=== PATIENT | female | born 1985 | race Two or more races ===

== ENCOUNTER 2021-01-08 20:40 | Emergency (ER) | payer MEDICAID ==
[~2021-01-08] VITALS: Ht 157.5 cm; Wt 77.3 kg
[2021-01-08] MEDS ORDERED: LANS30CA56 PO (20:59)
[2021-01-08] MEDS ORDERED: ENAL5TAB17 PO (20:59)
[2021-01-08] MEDS ORDERED: ENAL-90 PO (20:59)
[2021-01-08] MEDS ORDERED: LEVO125 PO (20:59)
[2021-01-08] MEDS ORDERED: QUET200T PO (20:59)
[2021-01-08] MEDS ORDERED: ALBUTEROL SULFATE HFA 90 MCG/PUFF 8 GM INHALER IH ONE (21:15)
[2021-01-08 21:20] VITALS: BP 126/79
== END 2021-01-08 21:50 | disposition home or self-care (01) ==
LOC: EMS 20:40
DX: J45.909 Unspecified asthma, uncomplicated (principal); Z76.0 Encounter for issue of repeat prescription
CPT/HCPCS: 90471; 94640; 99283; J3535

== ENCOUNTER 2021-01-30 21:10 | Emergency (ER) | payer MEDICAID ==
[~2021-01-30] VITALS: Ht 157.5 cm; Wt 90.5 kg
[~2021-01-30 21:10] MED LIST: ENAL-90 PO; ENAL5TAB17 PO; LANS30CA56 PO; LEVO125 PO; QUET200T PO
[2021-01-30 21:13] VITALS: BP 129/68
== END 2021-01-31 02:59 | disposition home or self-care (01) ==
LOC: EMS 21:10
DX: M54.6 Pain in thoracic spine (principal); F41.9 Anxiety disorder, unspecified; I10 Essential (primary) hypertension; F20.9 Schizophrenia, unspecified; Z76.0 Encounter for issue of repeat prescription
CPT/HCPCS: 72072; 84703; 99284; Z7502

== ENCOUNTER 2021-03-23 08:41 | Inpatient (IN) | payer MEDICAID, OTHER ==
[~2021-03-23] VITALS: Ht 160 cm; Wt 96.3 kg
[2021-03-23 09:27] LABS: BASOPHILS % (AUTO) 0.5 % (0.0-2.0); HEMOGLOBIN 11.9 g/dL (12.0-16.0); LYMPHOCYTES # (AUTO) 2.1 K/uL (1.0-4.8); LYMPHOCYTES % (AUTO) 30.5 % (22.0-44.0); MEAN CORPUSCULAR HEMOGLOBIN 27.3 pg (26.0-34.0); MEAN CORPUSCULAR VOLUME 83 fL (80-100); MONOCYTES # (AUTO) 0.6 K/uL (0.1-1.0); MONOCYTES % (AUTO) 7.9 % (2.0-9.0); NEUTROPHILS # (AUTO) 4.1 K/uL (1.8-7.7); NEUTROPHILS % (AUTO) 58.1 % (40.0-70.0); PLATELET COUNT (AUTO) 349 K/uL (150-450); RED BLOOD CELL COUNT(AUTO) 4.35 MIL/uL (4.00-5.20); RED CELL DISTRIBUTION WIDTH 16.4 % (11.5-14.5)
[2021-03-23 09:35] LABS: ANION GAP 5 mmol/L (8-16); CALCIUM, TOTAL 9.1 mg/dL (8.8-10.5); CARBON DIOXIDE 28 mmol/L (22-29); CHLORIDE 101 mmol/L (98-107); CREATININE 0.66 mg/dL (0.60-1.30); GLOMERULAR FILTR. RATE CALC > 60 mL/min (>60); GLUCOSE,RANDOM 101 mg/dL (70-110); POTASSIUM 4.2 mmol/L (3.5-5.1); SODIUM SERUM 134 mmol/L (136-145); UREA NITROGEN, BLOOD 25 mg/dL (7-18)
[2021-03-23 09:54] LABS: ALANINE AMINOTRANSFERASE 44 U/L (12-78); ALBUMIN 3.6 g/dL (3.4-5.0); ALKALINE PHOSPHATASE 51 U/L (46-116); ASPARTATE AMINOTRANSFERASE 19 U/L (15-37); BILIRUBIN,TOTAL 0.3 mg/dL (0.1-1.0); HCG,QUANTITATIVE < 1 mIU/mL (0-6); TOTAL PROTEIN, SERUM 7.6 g/dL (6.4-8.2)
[2021-03-23 11:58] LABS: AMPHET/METH SCREEN,URINE NEGATIVE (NEGATIVE); BARBITURATE SCREEN, URINE NEGATIVE (NEGATIVE); BENZODIAZEPINES SCREEN,URINE NEGATIVE (NEGATIVE); CANNABINOID SCREEN,URINE NEGATIVE (NEGATIVE); COCAINE SCREEN,URINE NEGATIVE (NEGATIVE); METHADONE SCREEN, URINE NEGATIVE (NEGATIVE); OPIATE SCREEN,URINE NEGATIVE (NEGATIVE); PHENCYCLIDINE SCREEN,URINE NEGATIVE (NEGATIVE)
[2021-03-23 12:49] LABS: COVID AG,FIA SOURCE NASOPHARYNGEAL
[2021-03-23] MEDS ORDERED: SERT-162 PO (13:17)
[2021-03-23] MEDS ORDERED: TRAZ150 PO (13:17)
[2021-03-23] MEDS ORDERED: QUEtiapine FUMARATE 100 MG TABLET PO ONE ×2 (15:30→18:00)
[2021-03-23] MEDS: ACETAMINOPHEN 325 MG TABLET PO PRN ×2 (18:18→20:47)
[2021-03-23] MEDS: LORazepam 2 MG TABLET PO PRN (20:47)
[2021-03-23 22:07] VITALS: BP 139/93
[2021-03-23] MEDS ORDERED: PERMETHRIN 1% 60 ML LOTION TP ONE (22:15)
[2021-03-24 01:08] VITALS: BP 131/97
[2021-03-24] MEDS: ZOLPIDEM TARTRATE 10 MG TABLET PO PRN ×2 (01:19→22:14)
[2021-03-24] MEDS ORDERED: PNEUMOCOCCAL VACCINE POLYVALENT 0.5 ML VIAL [PPSV23] IM. ONE (02:00)
[2021-03-24] MEDS ORDERED: LANSOPRAZOLE 30 MG CAPSULE PO SCH (06:30)
[2021-03-24] MEDS ORDERED: LEVOTHYROXINE SODIUM 200 MCG TABLET PO SCH (06:30)
[2021-03-24 07:15] LABS: CHOL/HDL RATIO 5.7 (3.9-5.7)
[2021-03-24 08:54] VITALS: BP 118/73
[2021-03-24] MEDS ORDERED: ENALAPRIL MALEATE 10 MG TABLET PO SCH (09:00)
[2021-03-24] MEDS ORDERED: CloNIDine HCL 0.1 MG TABLET PO PRN (10:15)
[2021-03-24] MEDS ORDERED: GuaiFENesin/D-METHORPHAN [SUGAR-FREE] 200-20MG/10 ML SYRUP UDCUP PO PRN (10:15)
[2021-03-24] MEDS ORDERED: PETROLATUM,WHITE 28 GM JELLY TP PRN (10:15)
[2021-03-24] MEDS ORDERED: MAGNESIUM HYDROXIDE SUSPENSION 30 ML UDCUP PO PRN (10:15)
[2021-03-24] MEDS ORDERED: NICOTINE 14 MG/24 HOUR PATCH TD PRN (10:15)
[2021-03-24] MEDS ORDERED: MAG HYDROX/AL HYDROX/SIMETH ES 30 ML SUSPENSION UDCUP PO PRN (10:15)
[2021-03-24] MEDS ORDERED: DOCUSATE SODIUM 100 MG CAPSULE PO PRN (10:15)
[2021-03-24] MEDS ORDERED: ALBUTEROL SULFATE HFA 90 MCG/PUFF 8 GM INHALER IH PRN (10:15)
[2021-03-24] MEDS ORDERED: ONDANSETRON HCL 4 MG TABLET PO PRN (10:15)
[2021-03-24] MEDS ORDERED: LOPERAMIDE HCL 2 MG CAPSULE PO PRN (10:15)
[2021-03-24] MEDS: LORazepam 2 MG TABLET PO PRN (12:30)
[2021-03-24] MEDS ORDERED: HALOPERIDOL DECANOATE 100 MG/ML VIAL IM ONE (15:15)
[2021-03-24 16:22] VITALS: BP 118/72
[2021-03-24] MEDS ORDERED: OLANZapine 5 MG TABLET PO SCH (17:00)
[2021-03-24] MEDS: QUEtiapine FUMARATE 200 MG TABLET PO SCH ×2 (17:17→21:10)
[2021-03-25 00:39] VITALS: BP 150/81
[2021-03-25] MEDS: IBUPROFEN 400 MG TABLET PO PRN ×2 (00:42→11:37)
[2021-03-25 01:16] VITALS: BP 125/91
[2021-03-25 04:05] VITALS: BP 117/63
[2021-03-25] MEDS: ACETAMINOPHEN 325 MG TABLET PO PRN (04:05)
[2021-03-25] MEDS: LANSOPRAZOLE 30 MG CAPSULE PO SCH (06:37)
[2021-03-25] MEDS: LEVOTHYROXINE SODIUM 125 MCG TABLET PO SCH (06:38)
[2021-03-25 08:29] VITALS: BP 118/69
[2021-03-25] MEDS: SERTRALINE HCL 100 MG TABLET PO SCH (08:51)
[2021-03-25] MEDS: ENALAPRIL MALEATE 20 MG TABLET PO SCH (08:51)
[2021-03-25] MEDS: QUEtiapine FUMARATE 200 MG TABLET PO SCH ×4 (08:51→20:08)
[2021-03-25] MEDS: HALOPERIDOL 5 MG TABLET PO PRN (13:40)
[2021-03-25 16:35] VITALS: BP 120/70
[2021-03-25] MEDS: ZOLPIDEM TARTRATE 10 MG TABLET PO PRN (20:25)
[2021-03-26] MEDS: QUEtiapine FUMARATE 25 MG TABLET PO PRN (00:41)
[2021-03-26 01:00] VITALS: BP 102/70
[2021-03-26] MEDS: LANSOPRAZOLE 30 MG CAPSULE PO SCH (06:21)
[2021-03-26] MEDS: LEVOTHYROXINE SODIUM 125 MCG TABLET PO SCH (06:22)
[2021-03-26] MEDS: SERTRALINE HCL 100 MG TABLET PO SCH (09:08)
[2021-03-26] MEDS: ENALAPRIL MALEATE 20 MG TABLET PO SCH (09:08)
[2021-03-26] MEDS: QUEtiapine FUMARATE 200 MG TABLET PO SCH ×4 (09:08→20:29)
[2021-03-26] MEDS: ACETAMINOPHEN 325 MG TABLET PO PRN (10:25)
[2021-03-26] MEDS: HALOPERIDOL 5 MG TABLET PO PRN (12:44)
[2021-03-26 13:11] VITALS: BP 117/83
[2021-03-26 16:25] VITALS: BP 120/62
[2021-03-26] MEDS ORDERED: DiphenhydrAMINE HCL 50 MG/ML VIAL ONE (17:54)
[2021-03-26] MEDS ORDERED: HALOPERIDOL LACTATE 5 MG/ML VIAL ONE (17:54)
[2021-03-26] MEDS ORDERED: LORazepam 2 MG/ML VIAL ONE (17:54)
[2021-03-26] MEDS ORDERED: HALOPERIDOL LACTATE 5 MG/ML VIAL IM ONE (18:00)
[2021-03-26] MEDS ORDERED: DiphenhydrAMINE HCL 50 MG/ML VIAL IM ONE (18:00)
[2021-03-26] MEDS ORDERED: LORazepam 2 MG/ML VIAL IM ONE (18:00)
[2021-03-26] MEDS: ZOLPIDEM TARTRATE 10 MG TABLET PO PRN (20:29)
[2021-03-27] MEDS: HALOPERIDOL 5 MG TABLET PO PRN ×3 (00:29→16:35)
[2021-03-27 01:56] VITALS: BP 116/69
[2021-03-27] MEDS: LANSOPRAZOLE 30 MG CAPSULE PO SCH (06:17)
[2021-03-27] MEDS: LEVOTHYROXINE SODIUM 125 MCG TABLET PO SCH (06:18)
[2021-03-27 09:35] VITALS: BP 122/74
[2021-03-27] MEDS: SERTRALINE HCL 100 MG TABLET PO SCH (09:44)
[2021-03-27] MEDS: ENALAPRIL MALEATE 20 MG TABLET PO SCH (09:44)
[2021-03-27] MEDS: QUEtiapine FUMARATE 200 MG TABLET PO SCH ×4 (09:44→20:17)
[2021-03-27] MEDS: IBUPROFEN 400 MG TABLET PO PRN (12:29)
[2021-03-27] MEDS: QUEtiapine FUMARATE 25 MG TABLET PO PRN ×2 (13:28→22:34)
[2021-03-27 16:27] VITALS: BP 138/80
[2021-03-27] MEDS: ZOLPIDEM TARTRATE 10 MG TABLET PO PRN (20:30)
[2021-03-28 00:15] VITALS: BP 142/80
[2021-03-28] MEDS: LEVOTHYROXINE SODIUM 125 MCG TABLET PO SCH (06:38)
[2021-03-28] MEDS: LANSOPRAZOLE 30 MG CAPSULE PO SCH (06:38)
[2021-03-28 08:39] VITALS: BP 131/71
[2021-03-28] MEDS: IBUPROFEN 400 MG TABLET PO PRN (08:40)
[2021-03-28] MEDS: HALOPERIDOL 5 MG TABLET PO PRN ×2 (08:40→12:41)
[2021-03-28] MEDS: QUEtiapine FUMARATE 200 MG TABLET PO SCH ×3 (09:15→16:13)
[2021-03-28] MEDS: ENALAPRIL MALEATE 20 MG TABLET PO SCH (09:16)
[2021-03-28] MEDS: SERTRALINE HCL 100 MG TABLET PO SCH (09:16)
[2021-03-28] MEDS: QUEtiapine FUMARATE 25 MG TABLET PO PRN ×2 (09:53→13:53)
[2021-03-28] MEDS: ACETAMINOPHEN 325 MG TABLET PO PRN (11:57)
[2021-03-28 16:26] VITALS: BP 112/74
[2021-04-07] MEDS ORDERED: HALOPERIDOL DECANOATE 100 MG/ML VIAL IM SCH (09:00)
== END 2021-03-28 17:00 | disposition home or self-care (01) | DRG 750 ==
LOC: EMS 08:53 → B2S 21:00
PROVIDERS: ADMIT Psychiatry & Neurology Child & Adolescent Psychiatry; ATTEND Psychiatry & Neurology Child & Adolescent Psychiatry
DX: F20.0 Paranoid schizophrenia (principal); E87.1 Hypo-osmolality and hyponatremia; Z91.19 Patient's noncompliance with other medical treatment and regimen; D64.9 Anemia, unspecified; Z20.822 Contact with and (suspected) exposure to COVID-19; F41.9 Anxiety disorder, unspecified; K21.9 Gastro-esophageal reflux disease without esophagitis; I10 Essential (primary) hypertension; J45.909 Unspecified asthma, uncomplicated; E03.9 Hypothyroidism, unspecified; Z59.0 Homelessness
CPT/HCPCS: 80053; 80061; 84702; 85025; 99285; G0480; J1200; J1630; J1631; J2060; J3535

== ENCOUNTER 2021-04-07 12:12 | Emergency (ER) | payer MEDICAID, OTHER ==
[~2021-04-07] VITALS: Ht 160 cm; Wt 96.3 kg
[~2021-04-07 12:12] MED LIST changes: -ENAL5TAB17 PO; +SERT-162 PO
[2021-04-07 12:35] VITALS: BP 130/80
[2021-04-07] MEDS ORDERED: KETOROLAC TROMETHAMINE 30 MG/ML VIAL IM ONE (13:15)
[2021-04-07] MEDS ORDERED: METHOCARBAMOL 500 MG TABLET PO ONE (13:15)
[2021-04-07] MEDS ORDERED: RISP3TAB44 PO (13:21)
[2021-04-07] MEDS ORDERED: HALO100V4 IM (13:21)
[2021-04-07] MEDS ORDERED: TRAZ300T2 PO (13:21)
[2021-04-07] MEDS ORDERED: LORA-1001 PO (13:21)
== END 2021-04-07 13:50 | disposition home or self-care (01) ==
LOC: EMS 12:12
DX: S29.012A Strain of muscle and tendon of back wall of thorax, initial encounter (principal); I10 Essential (primary) hypertension; E03.9 Hypothyroidism, unspecified; J45.909 Unspecified asthma, uncomplicated; F41.9 Anxiety disorder, unspecified; Z79.899 Other long term (current) drug therapy; X50.9XXA Other and unspecified overexertion or strenuous movements or postures, initial encounter; Y93.89 Activity, other specified; Y92.89 Other specified places as the place of occurrence of the external cause; Y99.8 Other external cause status
CPT/HCPCS: 96372; 99283; J1885

== ENCOUNTER 2021-09-04 14:50 | Emergency (ER) | payer OTHER ==
[~2021-09-04] VITALS: Ht 160 cm; Wt 78.2 kg
[~2021-09-04 14:50] MED LIST changes: +HALO100V4 IM; +LORA-1001 PO; -QUET200T PO; +RISP3TAB44 PO; +TRAZ300T2 PO
[2021-09-04 17:11] LABS: BASOPHILS % (AUTO) 0.2 % (0.0-2.0); EOSINOPHILS % (AUTO) 1.1 % (1.0-6.0); HEMATOCRIT 35.2 % (36-46); HEMOGLOBIN 12.1 g/dL (12.0-16.0); LYMPHOCYTES # (AUTO) 1.7 K/uL (1.0-4.8); LYMPHOCYTES % (AUTO) 22.4 % (22.0-44.0); MEAN CORPUSCULAR HEMOGLOBIN 28.8 pg (26.0-34.0); MEAN CORPUSCULAR HGB CONC 34.2 G/dL (31.0-37.0); MEAN CORPUSCULAR VOLUME 84 fL (80-100); MONOCYTES # (AUTO) 0.5 K/uL (0.1-1.0); MONOCYTES % (AUTO) 6.1 % (2.0-9.0); NEUTROPHILS # (AUTO) 5.4 K/uL (1.8-7.7); NEUTROPHILS % (AUTO) 70.2 % (40.0-70.0); PLATELET COUNT (AUTO) 303 K/uL (150-450); RED BLOOD CELL COUNT(AUTO) 4.19 MIL/uL (4.00-5.20)
[2021-09-04 17:21] LABS: ANION GAP 8 mmol/L (8-16); CALCIUM, TOTAL 8.8 mg/dL (8.8-10.5); CARBON DIOXIDE 29 mmol/L (22-29); CHLORIDE 103 mmol/L (98-107); CREATININE 0.75 mg/dL (0.60-1.30); GLOMERULAR FILTR. RATE CALC > 60 mL/min (>60); GLUCOSE,RANDOM 93 mg/dL (70-110); POTASSIUM 4.2 mmol/L (3.5-5.1); SODIUM SERUM 140 mmol/L (136-145); UREA NITROGEN, BLOOD 11 mg/dL (7-18)
[2021-09-04 17:39] LABS: ALANINE AMINOTRANSFERASE 78 U/L (12-78); ALBUMIN 3.4 g/dL (3.4-5.0); ALKALINE PHOSPHATASE 73 U/L (46-116); ASPARTATE AMINOTRANSFERASE 24 U/L (15-37); BILIRUBIN,TOTAL 0.3 mg/dL (0.1-1.0); HCG,QUANTITATIVE < 1 mIU/mL (0-6); LIPASE 79 U/L (73-393); TOTAL PROTEIN, SERUM 7.6 g/dL (6.4-8.2)
[2021-09-04 17:41] LABS: AMPHET/METH SCREEN,URINE NEGATIVE (NEGATIVE); BARBITURATE SCREEN, URINE NEGATIVE (NEGATIVE); BENZODIAZEPINES SCREEN,URINE NEGATIVE (NEGATIVE); CANNABINOID SCREEN,URINE NEGATIVE (NEGATIVE); COCAINE SCREEN,URINE NEGATIVE (NEGATIVE); METHADONE SCREEN, URINE NEGATIVE (NEGATIVE); OPIATE SCREEN,URINE NEGATIVE (NEGATIVE)
[2021-09-04 17:44] LABS: APPEARANCE,URINE CLEAR (CLEAR); GLUCOSE, URINE (UA) NEGATIVE (NEGATIVE); KETONES,URINE TRACE mg/dL (NEGATIVE); LEUKOCYTE ESTERASE ,URINE TRACE (NEGATIVE); NITRATE,URINE NEGATIVE (NEGATIVE); OCCULT BLOOD,URINE NEGATIVE (NEGATIVE); PROTEIN,URINE TRACE (NEGATIVE)
[2021-09-04 17:46] LABS: BILIRUBIN,URINE PRELIM. POSITIVE (NEGATIVE)
[2021-09-04 17:47] LABS: PHENCYCLIDINE SCREEN,URINE NEGATIVE (NEGATIVE)
[2021-09-04 18:30] VITALS: BP 133/78
[2021-09-04] MEDS ORDERED: PHEN-846 PO (19:00)
[2021-09-04] MEDS ORDERED: MACR100 PO (19:00)
[2021-09-04 19:20] LABS: RBC,URINE 0-2 /HPF (0-2)
[2021-09-04 19:21] LABS: BACTERIA,URINE Rare /HPF (None Seen)
== END 2021-09-04 19:10 | disposition home or self-care (01) ==
LOC: EMS 14:55
DX: N39.0 Urinary tract infection, site not specified (principal); F20.9 Schizophrenia, unspecified; I10 Essential (primary) hypertension; E03.9 Hypothyroidism, unspecified; J45.909 Unspecified asthma, uncomplicated; F41.9 Anxiety disorder, unspecified; Z79.899 Other long term (current) drug therapy
CPT/HCPCS: 36415; 80053; 80307; 81001; 83690; 84702; 85025; 99284; G0480

== ENCOUNTER 2021-09-21 19:40 | Inpatient (IN) | payer MEDICAID, OTHER ==
[~2021-09-21] VITALS: Ht 167.6 cm; Wt 109.8 kg
[~2021-09-21 19:40] MED LIST changes: +MACR100 PO; +PHEN-846 PO
[2021-09-21] MEDS ORDERED: LORazepam 2 MG/ML VIAL IM ONE (20:00)
[2021-09-21] MEDS ORDERED: DiphenhydrAMINE HCL 50 MG/ML VIAL IM ONE (20:00)
[2021-09-21] MEDS ORDERED: HALOPERIDOL LACTATE 5 MG/ML VIAL IM ONE (20:00)
[2021-09-21 20:11] LABS: BASOPHILS % (AUTO) 0.6 % (0.0-2.0); EOSINOPHILS % (AUTO) 2.7 % (1.0-6.0); HEMATOCRIT 36.5 % (36-46); HEMOGLOBIN 12.6 g/dL (12.0-16.0); LYMPHOCYTES # (AUTO) 2.7 K/uL (1.0-4.8); LYMPHOCYTES % (AUTO) 24.9 % (22.0-44.0); MEAN CORPUSCULAR HGB CONC 34.6 G/dL (31.0-37.0); MEAN CORPUSCULAR VOLUME 84 fL (80-100); MONOCYTES # (AUTO) 1.3 K/uL (0.1-1.0); NEUTROPHILS # (AUTO) 6.5 K/uL (1.8-7.7); NEUTROPHILS % (AUTO) 59.8 % (40.0-70.0); PLATELET COUNT (AUTO) 297 K/uL (150-450); RED BLOOD CELL COUNT(AUTO) 4.35 MIL/uL (4.00-5.20)
[2021-09-21 20:27] LABS: SALICYLATE < 2.8 mg/dL (2.8-20.0)
[2021-09-21 20:38] LABS: ANION GAP 13 mmol/L (8-16); CALCIUM, TOTAL 9.1 mg/dL (8.8-10.5); CARBON DIOXIDE 24 mmol/L (22-29); CHLORIDE 98 mmol/L (98-107); GLOMERULAR FILTR. RATE CALC > 60 mL/min (>60); GLUCOSE,RANDOM 112 mg/dL (70-110); POTASSIUM 3.7 mmol/L (3.5-5.1); SODIUM SERUM 135 mmol/L (136-145); UREA NITROGEN, BLOOD 10 mg/dL (7-18)
[2021-09-21 20:53] LABS: ALANINE AMINOTRANSFERASE 83 U/L (12-78); ALBUMIN 3.7 g/dL (3.4-5.0); ALKALINE PHOSPHATASE 87 U/L (46-116); ASPARTATE AMINOTRANSFERASE 28 U/L (15-37); BILIRUBIN,TOTAL 0.3 mg/dL (0.1-1.0); HCG,QUANTITATIVE < 1 mIU/mL (0-6); THYROID STIMULATING HORMONE 6.03 uIU/mL (0.36-3.74); TOTAL PROTEIN, SERUM 8.3 g/dL (6.4-8.2)
[2021-09-21 20:57] LABS: ACETAMINOPHEN < 2 mcg/mL (10-30)
[2021-09-21 20:59] LABS: COVID AG,FIA SOURCE NASAL SWAB
[2021-09-21] MEDS ORDERED: SODIUM CHLORIDE 0.9% 1,000 ML IV ONE (21:15)
[2021-09-21] MEDS ORDERED: PredniSONE 20 MG TABLET PO ONE (21:15)
[2021-09-21] MEDS ORDERED: SODIUM CHLORIDE 0.9% 100 ML ONE (21:27)
[2021-09-21] MEDS ORDERED: IOHEXOL 350 MG/ML 150 ML VIAL ONE (21:27)
[2021-09-21] MEDS ORDERED: HALOPERIDOL 5 MG TABLET PO PRN (23:00)
[2021-09-21] MEDS ORDERED: ZOLPIDEM TARTRATE 10 MG TABLET PO PRN (23:00)
[2021-09-21 23:24] LABS: APPEARANCE,URINE CLEAR (CLEAR); BILIRUBIN,URINE NEGATIVE (NEGATIVE); GLUCOSE, URINE (UA) NEGATIVE (NEGATIVE); KETONES,URINE NEGATIVE (NEGATIVE); LEUKOCYTE ESTERASE ,URINE NEGATIVE (NEGATIVE); NITRATE,URINE NEGATIVE (NEGATIVE); OCCULT BLOOD,URINE NEGATIVE (NEGATIVE); PH,URINE 7.5 (5.0-8.0); PROTEIN,URINE NEGATIVE (NEGATIVE); UROBILINOGEN,URINE 0.2 mg/dL (<=1.0)
[2021-09-21 23:45] LABS: AMPHET/METH SCREEN,URINE POSITIVE (NEGATIVE); BARBITURATE SCREEN, URINE NEGATIVE (NEGATIVE); BENZODIAZEPINES SCREEN,URINE NEGATIVE (NEGATIVE); CANNABINOID SCREEN,URINE NEGATIVE (NEGATIVE); COCAINE SCREEN,URINE NEGATIVE (NEGATIVE); METHADONE SCREEN, URINE NEGATIVE (NEGATIVE); OPIATE SCREEN,URINE NEGATIVE (NEGATIVE)
[2021-09-21 23:48] LABS: PHENCYCLIDINE SCREEN,URINE NEGATIVE (NEGATIVE)
[2021-09-21] MEDS ORDERED: FOLI0.8T2 PO (23:54)
[2021-09-21] MEDS ORDERED: ALLO100T2 PO (23:54)
[2021-09-21] MEDS ORDERED: INSU100V SQ (23:54)
[2021-09-21] MEDS ORDERED: CARV6 PO (23:54)
[2021-09-21] MEDS ORDERED: LIDO700A15 TP (23:54)
[2021-09-22 03:04] VITALS: BP 122/95
[2021-09-22] MEDS ORDERED: INFLUENZA VIRUS VACCINE QVS 2021-22 (6MO+)/PF 60 MCG/0.5 ML SYRINGE IM. ONE (03:30)
[2021-09-22] MEDS ORDERED: PNEUMOCOCCAL VACCINE POLYVALENT 0.5 ML VIAL [PPSV23] IM. ONE (03:30)
[2021-09-22] MEDS: LORazepam 2 MG TABLET PO PRN ×2 (04:08→10:06)
[2021-09-22] MEDS: BENZOCAINE/MENTHOL LOZENGE PO PRN (06:40)
[2021-09-22 08:05] VITALS: BP 112/79
[2021-09-22] MEDS: SERTRALINE HCL 100 MG TABLET PO SCH (12:02)
[2021-09-22] MEDS: RisperiDONE 3 MG TABLET PO SCH ×2 (12:02→17:46)
[2021-09-22] MEDS ORDERED: PETROLATUM,WHITE 28 GM JELLY TP PRN (13:15)
[2021-09-22] MEDS ORDERED: DOCUSATE SODIUM 100 MG CAPSULE PO PRN (13:15)
[2021-09-22] MEDS ORDERED: MAG HYDROX/AL HYDROX/SIMETH ES 30 ML SUSPENSION UDCUP PO PRN (13:15)
[2021-09-22] MEDS ORDERED: MAGNESIUM HYDROXIDE SUSPENSION 30 ML UDCUP PO PRN (13:15)
[2021-09-22] MEDS ORDERED: CloNIDine HCL 0.1 MG TABLET PO PRN (13:15)
[2021-09-22] MEDS ORDERED: ALBUTEROL SULFATE HFA 90 MCG/PUFF 8 GM INHALER IH PRN (13:15)
[2021-09-22] MEDS ORDERED: LOPERAMIDE HCL 2 MG CAPSULE PO PRN (13:15)
[2021-09-22] MEDS ORDERED: NICOTINE 14 MG/24 HOUR PATCH TD PRN (13:15)
[2021-09-22] MEDS ORDERED: ONDANSETRON HCL 4 MG TABLET PO PRN (13:15)
[2021-09-22 16:39] VITALS: BP 128/71
[2021-09-22] MEDS: CARVEDILOL 6.25 MG TABLET PO SCH (17:00)
[2021-09-22] MEDS: TraZODone HCL 100 MG TABLET PO SCH (20:11)
[2021-09-23 06:03] VITALS: BP 120/75
[2021-09-23] MEDS: LEVOTHYROXINE SODIUM 200 MCG TABLET PO SCH (06:45)
[2021-09-23] MEDS: SERTRALINE HCL 100 MG TABLET PO SCH (08:17)
[2021-09-23] MEDS: ENALAPRIL MALEATE 20 MG TABLET PO SCH (08:18)
[2021-09-23] MEDS: RisperiDONE 3 MG TABLET PO SCH ×2 (08:18→16:07)
[2021-09-23] MEDS: CARVEDILOL 6.25 MG TABLET PO SCH ×2 (08:18→16:07)
[2021-09-23 08:26] VITALS: BP 128/64
[2021-09-23] MEDS: BENZOCAINE/MENTHOL LOZENGE PO PRN (11:24)
[2021-09-23 16:24] VITALS: BP 110/83
[2021-09-23] MEDS: TraZODone HCL 100 MG TABLET PO SCH (19:51)
[2021-09-24 02:56] VITALS: BP 102/63
[2021-09-24] MEDS: LEVOTHYROXINE SODIUM 200 MCG TABLET PO SCH (06:27)
[2021-09-24] MEDS: ALLOPURINOL 100 MG TABLET PO SCH (08:04)
[2021-09-24] MEDS: SERTRALINE HCL 100 MG TABLET PO SCH (08:04)
[2021-09-24] MEDS: RisperiDONE 3 MG TABLET PO SCH ×2 (08:05→15:44)
[2021-09-24 08:13] VITALS: BP 108/76
[2021-09-24] MEDS: ENALAPRIL MALEATE 20 MG TABLET PO SCH (09:00)
[2021-09-24] MEDS: CARVEDILOL 6.25 MG TABLET PO SCH ×2 (09:00→15:45)
[2021-09-24] MEDS: GuaiFENesin/D-METHORPHAN [SUGAR-FREE] 200-20MG/10 ML SYRUP UDCUP PO PRN (15:55)
[2021-09-24 16:02] VITALS: BP 117/75
[2021-09-24] MEDS: IBUPROFEN 400 MG TABLET PO PRN (18:43)
[2021-09-24] MEDS: TraZODone HCL 100 MG TABLET PO SCH (20:11)
[2021-09-24] MEDS: ACETAMINOPHEN 325 MG TABLET PO PRN (20:17)
[2021-09-25 04:26] VITALS: BP 114/65
[2021-09-25] MEDS: LEVOTHYROXINE SODIUM 200 MCG TABLET PO SCH (06:41)
[2021-09-25 07:49] LABS: APPEARANCE,URINE CLEAR (CLEAR); BILIRUBIN,URINE NEGATIVE (NEGATIVE); GLUCOSE, URINE (UA) NEGATIVE (NEGATIVE); KETONES,URINE NEGATIVE (NEGATIVE); LEUKOCYTE ESTERASE ,URINE NEGATIVE (NEGATIVE); NITRATE,URINE NEGATIVE (NEGATIVE); OCCULT BLOOD,URINE NEGATIVE (NEGATIVE); PH,URINE 6.5 (5.0-8.0); PROTEIN,URINE NEGATIVE (NEGATIVE); UROBILINOGEN,URINE 0.2 mg/dL (<=1.0)
[2021-09-25 08:06] LABS: RBC,URINE None Seen /HPF (0-2); WBC,URINE None Seen /HPF (0-5)
[2021-09-25 08:07] VITALS: BP 110/71
[2021-09-25 08:07] LABS: BACTERIA,URINE None Seen /HPF (None Seen); SQUAMOUS EPITHELIAL CELL,UR Few /LPF (None Seen)
[2021-09-25] MEDS: CARVEDILOL 6.25 MG TABLET PO SCH ×2 (08:23→16:08)
[2021-09-25] MEDS: ENALAPRIL MALEATE 20 MG TABLET PO SCH (08:23)
[2021-09-25] MEDS: SERTRALINE HCL 100 MG TABLET PO SCH (08:23)
[2021-09-25] MEDS: RisperiDONE 3 MG TABLET PO SCH ×2 (08:23→16:08)
[2021-09-25 16:03] VITALS: BP 137/82
[2021-09-25 16:08] VITALS: BP 137/82
[2021-09-25] MEDS: GuaiFENesin/D-METHORPHAN [SUGAR-FREE] 200-20MG/10 ML SYRUP UDCUP PO PRN (16:08)
[2021-09-25] MEDS: ACETAMINOPHEN 325 MG TABLET PO PRN (16:08)
[2021-09-25] MEDS: TraZODone HCL 100 MG TABLET PO SCH (20:05)
[2021-09-26 00:10] VITALS: BP 124/86
[2021-09-26] MEDS: IBUPROFEN 400 MG TABLET PO PRN ×2 (00:11→17:11)
[2021-09-26 01:53] VITALS: BP 120/74
[2021-09-26] MEDS: LEVOTHYROXINE SODIUM 200 MCG TABLET PO SCH (06:57)
[2021-09-26 08:08] VITALS: BP 118/72
[2021-09-26] MEDS: RisperiDONE 3 MG TABLET PO SCH ×2 (08:14→16:02)
[2021-09-26] MEDS: CARVEDILOL 6.25 MG TABLET PO SCH ×2 (08:14→16:02)
[2021-09-26] MEDS: ALLOPURINOL 100 MG TABLET PO SCH (08:14)
[2021-09-26] MEDS: SERTRALINE HCL 100 MG TABLET PO SCH (08:14)
[2021-09-26] MEDS: LORazepam 2 MG TABLET PO PRN (08:14)
[2021-09-26] MEDS: ENALAPRIL MALEATE 20 MG TABLET PO SCH (08:14)
[2021-09-26 16:07] VITALS: BP 99/65
[2021-09-26 17:11] VITALS: BP 108/72
[2021-09-26 18:10] VITALS: BP 125/77
[2021-09-26] MEDS: TraZODone HCL 100 MG TABLET PO SCH (20:02)
[2021-09-26] MEDS: ACETAMINOPHEN 325 MG TABLET PO PRN (22:16)
[2021-09-27 04:17] VITALS: BP 110/67
[2021-09-27] MEDS: LEVOTHYROXINE SODIUM 200 MCG TABLET PO SCH (05:40)
[2021-09-27 08:41] VITALS: BP 130/81
[2021-09-27] MEDS: SERTRALINE HCL 100 MG TABLET PO SCH (08:56)
[2021-09-27] MEDS: RisperiDONE 3 MG TABLET PO SCH ×2 (08:56→16:03)
[2021-09-27] MEDS: CARVEDILOL 6.25 MG TABLET PO SCH ×2 (08:56→16:03)
[2021-09-27] MEDS: ENALAPRIL MALEATE 20 MG TABLET PO SCH (08:57)
[2021-09-27] MEDS: ACETAMINOPHEN 325 MG TABLET PO PRN ×2 (10:07→20:08)
[2021-09-27] MEDS: GuaiFENesin/D-METHORPHAN [SUGAR-FREE] 200-20MG/10 ML SYRUP UDCUP PO PRN (10:08)
[2021-09-27] MEDS: LORazepam 2 MG TABLET PO PRN (13:14)
[2021-09-27] MEDS: IBUPROFEN 400 MG TABLET PO PRN (13:32)
[2021-09-27 16:08] VITALS: BP 141/76
[2021-09-27] MEDS: TraZODone HCL 100 MG TABLET PO SCH (20:08)
[2021-09-28 03:12] VITALS: BP 126/70
[2021-09-28] MEDS: LEVOTHYROXINE SODIUM 200 MCG TABLET PO SCH (07:05)
[2021-09-28 08:24] VITALS: BP 127/69
[2021-09-28] MEDS: ENALAPRIL MALEATE 20 MG TABLET PO SCH (08:29)
[2021-09-28] MEDS: CARVEDILOL 6.25 MG TABLET PO SCH ×2 (08:29→16:12)
[2021-09-28] MEDS: RisperiDONE 3 MG TABLET PO SCH ×2 (08:29→16:03)
[2021-09-28] MEDS: SERTRALINE HCL 100 MG TABLET PO SCH (08:29)
[2021-09-28] MEDS: LORazepam 2 MG TABLET PO PRN (08:29)
[2021-09-28] MEDS: IBUPROFEN 400 MG TABLET PO PRN (13:33)
[2021-09-28] MEDS: GuaiFENesin/D-METHORPHAN [SUGAR-FREE] 200-20MG/10 ML SYRUP UDCUP PO PRN (13:33)
[2021-09-28 16:09] VITALS: BP 112/62
[2021-09-28] MEDS: TraZODone HCL 100 MG TABLET PO SCH (20:03)
[2021-09-28] MEDS: ACETAMINOPHEN 325 MG TABLET PO PRN (20:10)
[2021-09-29] MEDS: IBUPROFEN 400 MG TABLET PO PRN ×2 (00:25→12:48)
[2021-09-29 00:55] VITALS: BP 110/70
[2021-09-29] MEDS: ACETAMINOPHEN 325 MG TABLET PO PRN (04:17)
[2021-09-29] MEDS: LEVOTHYROXINE SODIUM 200 MCG TABLET PO SCH (06:43)
[2021-09-29] MEDS: CARVEDILOL 6.25 MG TABLET PO SCH ×2 (08:10→16:34)
[2021-09-29] MEDS: SERTRALINE HCL 100 MG TABLET PO SCH (08:11)
[2021-09-29] MEDS: RisperiDONE 3 MG TABLET PO SCH ×2 (08:11→16:34)
[2021-09-29] MEDS: BENZOCAINE/MENTHOL LOZENGE PO PRN ×2 (08:11→17:32)
[2021-09-29] MEDS: ALLOPURINOL 100 MG TABLET PO SCH (08:11)
[2021-09-29] MEDS: ENALAPRIL MALEATE 20 MG TABLET PO SCH (08:11)
[2021-09-29 08:21] VITALS: BP 119/73
[2021-09-29] MEDS ORDERED: HALO100V4 IM (10:13)
[2021-09-29] MEDS ORDERED: TRAZ-257 PO (10:13)
[2021-09-29] MEDS ORDERED: RISP3TAB63 PO (10:13)
[2021-09-29] MEDS ORDERED: SERT-440 PO (10:13)
[2021-09-29 16:21] VITALS: BP 129/92
[2021-10-22] MEDS ORDERED: HALOPERIDOL DECANOATE 100 MG/ML VIAL IM SCH (09:00)
== END 2021-09-29 19:07 | disposition home or self-care (01) | DRG 750 ==
LOC: EMS 19:41 → B3A 09-22 00:35
PROVIDERS: ADMIT Psychiatry & Neurology Child & Adolescent Psychiatry; ATTEND Psychiatry & Neurology Child & Adolescent Psychiatry
DX: F25.1 Schizoaffective disorder, depressive type (principal); E03.9 Hypothyroidism, unspecified; I10 Essential (primary) hypertension; J45.909 Unspecified asthma, uncomplicated; K21.9 Gastro-esophageal reflux disease without esophagitis; Z78.1 Physical restraint status; F10.10 Alcohol abuse, uncomplicated; F14.90 Cocaine use, unspecified, uncomplicated; F41.9 Anxiety disorder, unspecified; F15.10 Other stimulant abuse, uncomplicated; Z79.899 Other long term (current) drug therapy; Z20.822 Contact with and (suspected) exposure to COVID-19
CPT/HCPCS: 71045; 71275; 80053; 80061; 81001; 81003; 84439; 84443; 84484; 84702; 85025; 85379; 87081; 90732; 93005; 99291; G0480; G0481; J1200; J1630; J2060; J3535; J7050; Q9967; 36415-L1; 36415-TC

== ENCOUNTER 2025-05-19 17:49 | Inpatient (IN) | payer MEDICAID, OTHER ==
[~2025-05-19] VITALS: Ht 160 cm; Wt 104.5 kg
[~2025-05-19 17:49] MED LIST changes: +CARV-165 PO; +HALO100V36 IM; -HALO100V4 IM; -LANS30CA56 PO; -LORA-1001 PO; -MACR100 PO; -PHEN-846 PO; -RISP3TAB44 PO; +RISP3TAB77 PO; -SERT-162 PO; +SERT-440 PO; +TRAZ-257 PO; -TRAZ300T2 PO
[2025-05-19 19:44] VITALS: O2SAT 97
[2025-05-19 19:48] LABS: PLATELET COUNT (AUTO) 290 K/uL (150-450); RED BLOOD CELL COUNT(AUTO) 4.24 MIL/uL (4.00-5.20); RED CELL DISTRIBUTION WIDTH 14.3 % (11.5-14.5); WHITE BLOOD COUNT (AUTO) 10.7 K/uL (4.5-11.0)
[2025-05-19 20:02] LABS: CALCIUM, TOTAL 9.1 mg/dL (8.8-10.5); CREATININE 0.50 mg/dL (0.60-1.30); GLOMERULAR FILTR. RATE CALC > 60 mL/min (>60); GLUCOSE,RANDOM 90 mg/dL (70-110); SODIUM SERUM 135 mmol/L (136-145); UREA NITROGEN, BLOOD 8 mg/dL (7-18)
[2025-05-19 20:03] LABS: ALCOHOL, BLOOD (SERUM) < 3 mg/dL (0-10)
[2025-05-19 20:06] LABS: ASPARTATE AMINOTRANSFERASE 26 U/L (15-37); TOTAL PROTEIN, SERUM 7.3 g/dL (6.4-8.2)
[2025-05-19 20:48] LABS: COVID AG,FIA SOURCE NASAL SWAB
[2025-05-19 21:09] LABS: SARS-COV2 (COVID) ANTIGEN,FIA Negative (Negative)
[2025-05-19] MEDS: ACETAMINOPHEN 325 MG TABLET PO ONE (22:51)
[2025-05-20 00:36] VITALS: BP 128/95; PULSE 103; RESP 18; TEMP 98.5
[2025-05-20] MEDS: INFLUENZA VIRUS VACCINE TVS (6MO+) 2025-26/PF 45 MCG/0.5 ML SYRINGE IM. ONE (01:30)
[2025-05-20] MEDS: ZOLPIDEM TARTRATE 10 MG TABLET PO PRN (02:45)
[2025-05-20] MEDS ORDERED: MAGNESIUM HYDROXIDE SUSPENSION 30 ML UDCUP PO PRN ×2 (06:00→14:15)
[2025-05-20] MEDS ORDERED: DOCUSATE SODIUM 100 MG CAPSULE PO PRN (06:00)
[2025-05-20] MEDS ORDERED: ACETAMINOPHEN 325 MG TABLET PO PRN (06:00)
[2025-05-20] MEDS ORDERED: IBUPROFEN 400 MG TABLET PO PRN (06:00)
[2025-05-20] MEDS ORDERED: NICOTINE 14 MG/24 HOUR PATCH TD PRN (06:00)
[2025-05-20] MEDS ORDERED: GuaiFENesin/D-METHORPHAN [SUGAR-FREE] 200-20MG/10 ML SYRUP UDCUP PO PRN (06:00)
[2025-05-20] MEDS ORDERED: ONDANSETRON 4 MG TABLET PO PRN (06:00)
[2025-05-20] MEDS ORDERED: LOPERAMIDE HCL 2 MG CAPSULE PO PRN (06:00)
[2025-05-20] MEDS ORDERED: PETROLATUM,WHITE 28 GM JELLY TP PRN (06:00)
[2025-05-20] MEDS: LEVOTHYROXINE SODIUM 200 MCG TABLET PO SCH (06:30)
[2025-05-20] MEDS ORDERED: LEVOTHYROXINE SODIUM 125 MCG TABLET PO SCH (06:30)
[2025-05-20 09:32] VITALS: BP 126/82; PULSE 92; RESP 17; TEMP 97.7; O2SAT 98
[2025-05-20 09:40] LABS: PLATELET COUNT (AUTO) 271 K/uL (150-450); RED BLOOD CELL COUNT(AUTO) 3.98 MIL/uL (4.00-5.20); RED CELL DISTRIBUTION WIDTH 14.1 % (11.5-14.5); WHITE BLOOD COUNT (AUTO) 9.8 K/uL (4.5-11.0)
[2025-05-20] MEDS: ENALAPRIL MALEATE 20 MG TABLET PO SCH (09:46)
[2025-05-20 10:32] LABS: ASPARTATE AMINOTRANSFERASE 19 U/L (15-37); CALCIUM, TOTAL 8.5 mg/dL (8.8-10.5); CHOL/HDL RATIO 5.8 (3.9-5.7); CREATININE 0.47 mg/dL (0.60-1.30); GLOMERULAR FILTR. RATE CALC > 60 mL/min (>60); GLUCOSE,RANDOM 94 mg/dL (70-110); LDL CHOL (CALC.) 124 mg/dL (0-130); SODIUM SERUM 140 mmol/L (136-145); TOTAL PROTEIN, SERUM 6.7 g/dL (6.4-8.2); UREA NITROGEN, BLOOD 12 mg/dL (7-18)
[2025-05-20] MEDS: MAG HYDROX/ALUMINUM HYD/SIMETH ES 30 ML SUSPENSION UDCUP PO PRN (12:46)
[2025-05-20] MEDS ORDERED: ENAL-128 PO (13:01)
[2025-05-20] MEDS ORDERED: LEVO200 PO (13:01)
[2025-05-20] MEDS ORDERED: LACTULOSE 20 GM/30 ML SOLUTION UDCUP PO PRN (14:15)
[2025-05-20] MEDS ORDERED: ALBUTEROL SULFATE HFA 90 MCG/PUFF 8 GM INHALER IH PRN (14:15)
[2025-05-20] MEDS ORDERED: DOCUSATE SODIUM 250 MG CAPSULE PO PRN (14:15)
[2025-05-20] MEDS: CHOLECALCIFEROL (VIT D3) 1,000 UNITS [25 MCG] TABLET PO ONE (14:34)
[2025-05-20] MEDS: DIVALPROEX SODIUM 500 MG DR TABLET PO SCH ×2 (14:34→20:29)
[2025-05-20 16:40] VITALS: BP 131/66; PULSE 86; RESP 18
[2025-05-20] MEDS: PROPRANOLOL HCL 20 MG TABLET PO SCH (16:42)
[2025-05-20] MEDS: BISACODYL 5 MG EC TABLET PO SCH (16:42)
[2025-05-20] MEDS: OMEGA-3/DHA/EPA/FISH OIL 1,000 MG CAPSULE PO SCH (16:44)
[2025-05-20] MEDS ORDERED: PROPRANOLOL HCL 40 MG TABLET PO SCH (17:00)
[2025-05-20 17:25] VITALS: RESP 18
[2025-05-20] MEDS: ACETAMINOPHEN 325 MG TABLET PO PRN (17:25)
[2025-05-20 18:25] VITALS: RESP 18
[2025-05-20 20:00] VITALS: BP 129/77; PULSE 75; RESP 18; TEMP 98.2; O2SAT 100
[2025-05-21] VITALS (7 sets, daily range): BP systolic 121–138; BP diastolic 78–92; PULSE 81–102; RESP 17–18; TEMP 97.8–98; O2SAT 99–100
[2025-05-21] MEDS: MULTIVITAMINS WITH MINERALS, THERAPEUTIC TABLET PO SCH (08:34)
[2025-05-21] MEDS: CYANOCOBALAMIN 500 MCG TABLET PO SCH (08:34)
[2025-05-21] MEDS: CHOLECALCIFEROL (VIT D3) 1,000 UNITS [25 MCG] TABLET PO SCH (08:34)
[2025-05-21 08:48] LABS: CHOL/HDL RATIO 5.4 (3.9-5.7); LDL CHOL (CALC.) 132.0 mg/dL (0-130)
[2025-05-22] MEDS: PALIPERIDONE PALMITATE 234 MG/1.5 ML SYRINGE IM SCH (08:31)
[2025-05-22 08:49] VITALS: BP 122/81; PULSE 68; RESP 16; TEMP 98.4; O2SAT 98
[2025-05-22 14:46] VITALS: RESP 17
[2025-05-22 15:46] VITALS: RESP 17
[2025-05-22] MEDS: ALBUTEROL SULFATE HFA 90 MCG/PUFF 8 GM INHALER IH PRN (18:12)
[2025-05-22 20:27] VITALS: BP 114/67; PULSE 84; RESP 17; TEMP 97.8; O2SAT 97
[2025-05-22 20:28] VITALS: RESP 18
[2025-05-22 21:28] VITALS: RESP 18
[2025-05-23 09:02] VITALS: BP 131/89; PULSE 94; RESP 17; TEMP 97.4; O2SAT 100
[2025-05-23 16:39] VITALS: BP 124/66; PULSE 91; RESP 18
[2025-05-23 20:15] VITALS: BP 107/64; PULSE 87; RESP 17; TEMP 97.8; O2SAT 98
[2025-05-23 20:31] VITALS: RESP 18
[2025-05-23 21:23] VITALS: RESP 18
[2025-05-24 06:34] VITALS: BP 125/74; PULSE 86; RESP 18
[2025-05-24 07:31] VITALS: RESP 18
[2025-05-24 08:33] VITALS: BP 139/90; PULSE 100; RESP 18; TEMP 98.4; O2SAT 96
[2025-05-24 09:56] LABS: APPEARANCE,URINE CLEAR (CLEAR); GLUCOSE, URINE (UA) NEGATIVE (NEGATIVE); LEUKOCYTE ESTERASE ,URINE NEGATIVE (NEGATIVE); NITRATE,URINE NEGATIVE (NEGATIVE); OCCULT BLOOD,URINE NEGATIVE (NEGATIVE); PH,URINE DRUG SCREEN 7.0 (5.0-8.0); SPECIFIC GRAVITIY, URINE 1.009 (1.003-1.030)
[2025-05-24 10:01] LABS: AMPHET/METH SCREEN,URINE NEGATIVE (NEGATIVE); BARBITURATE SCREEN, URINE NEGATIVE (NEGATIVE); CANNABINOID SCREEN,URINE NEGATIVE (NEGATIVE); COCAINE SCREEN,URINE NEGATIVE (NEGATIVE); METHADONE SCREEN, URINE NEGATIVE (NEGATIVE)
[2025-05-24 10:22] LABS: ALCOHOL, URINE DRUG SCREEN NEGATIVE (NEGATIVE)
[2025-05-24 16:19] VITALS: BP 118/82; PULSE 81; RESP 18; O2SAT 98
[2025-05-24 20:42] VITALS: BP 125/87; PULSE 78; RESP 18; TEMP 98.1; O2SAT 98
[2025-05-25] MEDS ORDERED: METF-1211 PO (05:59)
[2025-05-25] MEDS ORDERED: AMLO-257 PO (05:59)
[2025-05-25] MEDS ORDERED: CLOZ100T61 PO (05:59)
[2025-05-25] MEDS ORDERED: BUSP10TA23 PO (05:59)
[2025-05-25] MEDS ORDERED: MULT-1303 PO (05:59)
[2025-05-25] MEDS ORDERED: CHOL25TA4 PO (05:59)
[2025-05-25] MEDS ORDERED: PROP20TA96 PO (05:59)
[2025-05-25] MEDS ORDERED: ENAL-128 PO (05:59)
[2025-05-25] MEDS ORDERED: LEVO200 PO (05:59)
[2025-05-25] MEDS ORDERED: CLOZ25TA52 PO (05:59)
[2025-05-25] MEDS ORDERED: DIVA-112 PO ×2 (05:59)
[2025-05-25] MEDS ORDERED: OMEG100033 PO (05:59)
[2025-05-25] MEDS ORDERED: CYAN500T56 PO (05:59)
[2025-05-25] MEDS ORDERED: CARV-165 PO (05:59)
[2025-05-25] MEDS ORDERED: LEVE-71 PO (05:59)
[2025-05-25] MEDS ORDERED: PALI234D IM (05:59)
[2025-05-25] MEDS ORDERED: HALO5TAB23 PO (06:05)
[2025-05-25 08:52] VITALS: BP 116/76; PULSE 96; RESP 17; TEMP 97.5; O2SAT 99
== END 2025-05-25 11:33 | DRG 761 ==
LOC: EMS 17:49 → B2S 23:08
PROVIDERS: ADMIT Psychiatry & Neurology Psychiatry; ATTEND Psychiatry & Neurology Psychiatry
PROC: GZHZZZZ Group Psychotherapy (ICD-10-PCS; principal; 2025-05-20)
DX: F25.1 Schizoaffective disorder, depressive type (principal); R45.851 Suicidal ideations; R56.9 Unspecified convulsions; E03.9 Hypothyroidism, unspecified; E78.5 Hyperlipidemia, unspecified; Z20.822 Contact with and (suspected) exposure to COVID-19; E11.9 Type 2 diabetes mellitus without complications; E66.01 Morbid (severe) obesity due to excess calories; F41.9 Anxiety disorder, unspecified; I10 Essential (primary) hypertension; J45.909 Unspecified asthma, uncomplicated; K59.00 Constipation, unspecified; M54.9 Dorsalgia, unspecified; Z79.899 Other long term (current) drug therapy; Z68.41 Body mass index [BMI] 40.0-44.9, adult; Z91.51 Personal history of suicidal behavior
CPT/HCPCS: 80048; 80053; 80061; 80076; 80307; 81003; 83036; 84436; 84439; 84443; 84703; 85025; 90686; G0480; J3535

== ENCOUNTER 2025-05-28 16:26 | Inpatient (IN) | payer MEDICAID, OTHER ==
[~2025-05-28] VITALS: Ht 160 cm; Wt 103.4 kg
[~2025-05-28 16:26] MED LIST changes: +AMLO-257 PO; +BUSP10TA23 PO; +CHOL25TA4 PO; +CLOZ100T61 PO; +CLOZ25TA52 PO; +CYAN500T56 PO; +DIVA-112 PO; +ENAL-128 PO; -ENAL-90 PO; -HALO100V36 IM; +HALO5TAB23 PO; +LEVE-71 PO; -LEVO125 PO; +LEVO200 PO; +METF-1211 PO; +MULT-1303 PO; +OMEG100033 PO; +PALI234D IM; +PROP20TA96 PO; -RISP3TAB77 PO; -SERT-440 PO; -TRAZ-257 PO
[2025-05-28 17:01] LABS: PLATELET COUNT (AUTO) 407 K/uL (150-450); RED BLOOD CELL COUNT(AUTO) 4.28 MIL/uL (4.00-5.20); RED CELL DISTRIBUTION WIDTH 14.2 % (11.5-14.5); WHITE BLOOD COUNT (AUTO) 7.4 K/uL (4.5-11.0)
[2025-05-28 17:05] LABS: CALCIUM, TOTAL 9.0 mg/dL (8.8-10.5); CREATININE 0.69 mg/dL (0.60-1.30); GLOMERULAR FILTR. RATE CALC > 60 mL/min (>60); GLUCOSE,RANDOM 98 mg/dL (70-110); SODIUM SERUM 141 mmol/L (136-145); UREA NITROGEN, BLOOD 12 mg/dL (7-18)
[2025-05-28 19:28] LABS: COVID AG,FIA SOURCE NASAL SWAB
[2025-05-28 19:49] LABS: SARS-COV2 (COVID) ANTIGEN,FIA Negative (Negative)
[2025-05-28 20:10] LABS: PH,URINE DRUG SCREEN 7.0 (5.0-8.0)
[2025-05-28 20:16] LABS: ALCOHOL, URINE DRUG SCREEN NEGATIVE (NEGATIVE); AMPHET/METH SCREEN,URINE NEGATIVE (NEGATIVE); BARBITURATE SCREEN, URINE NEGATIVE (NEGATIVE); CANNABINOID SCREEN,URINE NEGATIVE (NEGATIVE); COCAINE SCREEN,URINE NEGATIVE (NEGATIVE); METHADONE SCREEN, URINE NEGATIVE (NEGATIVE)
[2025-05-28 23:59] VITALS: BP 125/77; PULSE 85; RESP 18; TEMP 97.7; O2SAT 100
[2025-05-29 00:19] VITALS: BP 147/77; PULSE 85; RESP 18; TEMP 98.5; O2SAT 99
[2025-05-29] MEDS: ZOLPIDEM TARTRATE 10 MG TABLET PO PRN (00:57)
[2025-05-29 08:38] VITALS: BP 129/92; PULSE 103; RESP 18; TEMP 97.5; O2SAT 99
[2025-05-29 08:56] LABS: PLATELET COUNT (AUTO) 383 K/uL (150-450); RED BLOOD CELL COUNT(AUTO) 4.01 MIL/uL (4.00-5.20); RED CELL DISTRIBUTION WIDTH 14.0 % (11.5-14.5); WHITE BLOOD COUNT (AUTO) 7.7 K/uL (4.5-11.0)
[2025-05-29] MEDS: BACITRACIN 28 GM OINTMENT TP SCH (09:00)
[2025-05-29 09:19] LABS: ASPARTATE AMINOTRANSFERASE 21 U/L (15-37); CALCIUM, TOTAL 8.8 mg/dL (8.8-10.5); CHOL/HDL RATIO 6.1 (3.9-5.7); CREATININE 0.46 mg/dL (0.60-1.30); GLOMERULAR FILTR. RATE CALC > 60 mL/min (>60); GLUCOSE,RANDOM 99 mg/dL (70-110); LDL CHOL (CALC.) 128 mg/dL (0-130); SODIUM SERUM 141 mmol/L (136-145); TOTAL PROTEIN, SERUM 7.1 g/dL (6.4-8.2); UREA NITROGEN, BLOOD 15 mg/dL (7-18)
[2025-05-29] MEDS ORDERED: PETROLATUM,WHITE 28 GM JELLY TP PRN (12:45)
[2025-05-29] MEDS ORDERED: NICOTINE 14 MG/24 HOUR PATCH TD PRN (12:45)
[2025-05-29] MEDS ORDERED: ONDANSETRON 4 MG TABLET PO PRN (12:45)
[2025-05-29] MEDS ORDERED: LOPERAMIDE HCL 2 MG CAPSULE PO PRN (12:45)
[2025-05-29] MEDS ORDERED: DOCUSATE SODIUM 100 MG CAPSULE PO PRN (12:45)
[2025-05-29 12:56] VITALS: BP 110/67; PULSE 100; RESP 17
[2025-05-29] MEDS: ACETAMINOPHEN 325 MG TABLET PO PRN (12:56)
[2025-05-29] MEDS: DIVALPROEX SODIUM 500 MG DR TABLET PO SCH ×2 (12:57→20:15)
[2025-05-29] MEDS: OMEGA-3/DHA/EPA/FISH OIL 1,000 MG CAPSULE PO SCH (16:49)
[2025-05-29] MEDS: TOPIRAMATE 100 MG TABLET PO SCH (16:50)
[2025-05-29] MEDS: PROPRANOLOL HCL 40 MG TABLET PO SCH (16:50)
[2025-05-29] MEDS ORDERED: PROPRANOLOL HCL 40 MG TABLET PO SCH (17:00)
[2025-05-29 18:02] VITALS: BP 110/70; RESP 17
[2025-05-29] MEDS: IBUPROFEN 400 MG TABLET PO PRN (18:22)
[2025-05-29 20:54] VITALS: BP 110/67; PULSE 100; RESP 18; TEMP 97.7; O2SAT 100
[2025-05-29] MEDS: MAG HYDROX/ALUMINUM HYD/SIMETH ES 30 ML SUSPENSION UDCUP PO PRN (21:43)
[2025-05-30] MEDS: LEVOTHYROXINE SODIUM 200 MCG TABLET PO SCH (06:18)
[2025-05-30 08:06] VITALS: BP 117/65; PULSE 89; RESP 16; TEMP 97.5; O2SAT 96
[2025-05-30] MEDS: MULTIVITAMINS WITH MINERALS, THERAPEUTIC TABLET PO SCH (08:52)
[2025-05-30] MEDS: CHOLECALCIFEROL (VIT D3) 1,000 UNITS [25 MCG] TABLET PO SCH (08:52)
[2025-05-30] MEDS ORDERED: ENALAPRIL MALEATE 20 MG TABLET PO SCH (09:00)
[2025-05-30 10:02] LABS: APPEARANCE,URINE CLEAR (CLEAR); GLUCOSE, URINE (UA) NEGATIVE (NEGATIVE); LEUKOCYTE ESTERASE ,URINE NEGATIVE (NEGATIVE); NITRATE,URINE NEGATIVE (NEGATIVE); OCCULT BLOOD,URINE NEGATIVE (NEGATIVE); SPECIFIC GRAVITIY, URINE 1.024 (1.003-1.030)
[2025-05-30 10:12] LABS: HCG,QUAL URINE NEGATIVE (NEGATIVE)
[2025-05-30 12:26] VITALS: BP 119/70; PULSE 90; RESP 16; TEMP 97.8; O2SAT 96
[2025-05-30 13:26] VITALS: RESP 16; O2SAT 96
[2025-05-30 20:00] VITALS: BP 113/83; PULSE 86; RESP 17; TEMP 97.3; O2SAT 99
[2025-05-30 20:40] VITALS: BP 115/81; PULSE 88; RESP 18; O2SAT 98
[2025-05-31 06:27] VITALS: BP 128/93; PULSE 84; RESP 18; TEMP 97.5; O2SAT 99
[2025-05-31 07:25] VITALS: RESP 17; O2SAT 99
[2025-05-31 08:14] VITALS: BP 141/91; PULSE 100; RESP 17; TEMP 97.3; O2SAT 98
[2025-05-31] MEDS: AMOX TR/POT CLAV 875 MG/125 MG TABLET PO SCH (09:37)
[2025-05-31] MEDS: PROPRANOLOL HCL 20 MG TABLET PO SCH (11:38)
[2025-05-31 20:13] VITALS: BP 131/89; PULSE 92; RESP 17; TEMP 97.7; O2SAT 99
[2025-06-01 06:13] VITALS: RESP 18
[2025-06-01] MEDS: GuaiFENesin/D-METHORPHAN [SUGAR-FREE] 200-20MG/10 ML SYRUP UDCUP PO PRN (06:29)
[2025-06-01 07:20] VITALS: RESP 18
[2025-06-01 08:19] VITALS: BP 156/83; PULSE 93; RESP 17; TEMP 97.5; O2SAT 100
[2025-06-01 09:32] LABS: CALCIUM, TOTAL 8.8 mg/dL (8.8-10.5); CREATININE 0.67 mg/dL (0.60-1.30); GLOMERULAR FILTR. RATE CALC > 60 mL/min (>60); GLUCOSE,RANDOM 139 mg/dL (70-110); SODIUM SERUM 139 mmol/L (136-145); UREA NITROGEN, BLOOD 13 mg/dL (7-18)
[2025-06-01 10:02] LABS: APPEARANCE,URINE CLEAR (CLEAR); GLUCOSE, URINE (UA) NEGATIVE (NEGATIVE); LEUKOCYTE ESTERASE ,URINE NEGATIVE (NEGATIVE); NITRATE,URINE NEGATIVE (NEGATIVE); OCCULT BLOOD,URINE NEGATIVE (NEGATIVE); SPECIFIC GRAVITIY, URINE 1.013 (1.003-1.030)
[2025-06-01 11:47] VITALS: BP 133/89; PULSE 88; RESP 16; TEMP 97.8; O2SAT 99
[2025-06-01 12:47] VITALS: RESP 18
[2025-06-01 20:10] VITALS: BP 126/86; PULSE 94; RESP 17; TEMP 97.9; O2SAT 96
[2025-06-02 08:17] VITALS: BP 131/96; PULSE 99; RESP 16; TEMP 98; O2SAT 100
[2025-06-02 09:28] VITALS: RESP 16
[2025-06-02] MEDS ORDERED: BACITRACIN 28 GM OINTMENT TP PRN (10:00)
[2025-06-02 10:28] VITALS: RESP 16
[2025-06-02] MEDS: MAGNESIUM HYDROXIDE SUSPENSION 30 ML UDCUP PO PRN (10:28)
[2025-06-02 16:43] VITALS: RESP 16
[2025-06-02 17:51] VITALS: RESP 16
[2025-06-02 20:00] VITALS: BP 124/84; PULSE 98; RESP 16; TEMP 98.1; O2SAT 100
[2025-06-03 08:14] VITALS: BP 110/67; PULSE 93; RESP 17; TEMP 97.8; O2SAT 100
[2025-06-03 13:07] VITALS: RESP 17; O2SAT 100
[2025-06-03 14:07] VITALS: RESP 17; O2SAT 100
[2025-06-03 16:37] VITALS: BP 112/61; PULSE 89; RESP 18
[2025-06-03 20:07] VITALS: BP 112/61; PULSE 89; RESP 18; TEMP 98.8; O2SAT 97
[2025-06-04 08:23] VITALS: BP 118/81; PULSE 100; RESP 17; TEMP 97.6; O2SAT 98
[2025-06-04 09:11] VITALS: RESP 17
[2025-06-04] MEDS ORDERED: TOPI-258 PO (10:04)
[2025-06-04] MEDS ORDERED: AMOX-457 PO (10:06)
[2025-06-04 10:11] VITALS: RESP 17
[2025-06-04] MEDS ORDERED: HALO10TA21 PO (10:44)
[2025-06-04 20:36] VITALS: BP 111/60; PULSE 83; RESP 17; TEMP 98; O2SAT 99
[2025-06-05 08:14] VITALS: BP 134/75; PULSE 88; RESP 18; TEMP 97.7; O2SAT 100
[2025-06-05 09:00] LABS: PLATELET COUNT (AUTO) 338 K/uL (150-450); RED BLOOD CELL COUNT(AUTO) 4.08 MIL/uL (4.00-5.20); RED CELL DISTRIBUTION WIDTH 14.0 % (11.5-14.5); WHITE BLOOD COUNT (AUTO) 8.5 K/uL (4.5-11.0)
[2025-06-05 16:17] VITALS: RESP 18; O2SAT 99
[2025-06-05 17:17] VITALS: RESP 17; O2SAT 99
[2025-06-05] MEDS: ALBUTEROL SULFATE HFA 90 MCG/PUFF 8 GM INHALER IH PRN (19:16)
[2025-06-05 20:09] VITALS: BP 127/97; PULSE 94; RESP 18; TEMP 97.7; O2SAT 98
[2025-06-06 08:31] VITALS: BP 136/87; PULSE 100; RESP 16; TEMP 97.5; O2SAT 99
[2025-06-06 12:40] VITALS: BP 131/87; PULSE 89; RESP 18; TEMP 97.8; O2SAT 99
[2025-06-06 13:40] VITALS: RESP 18
[2025-06-06 17:00] VITALS: BP 145/94; RESP 18
[2025-06-06 20:18] VITALS: BP 127/94; PULSE 72; RESP 18; TEMP 98.4; O2SAT 98
[2025-06-07] VITALS (8 sets, daily range): BP systolic 134–145; BP diastolic 82–93; PULSE 87–89; RESP 16–18; TEMP 97.7–98.6; O2SAT 98–99
[2025-06-08 08:15] VITALS: BP 115/60; PULSE 87; RESP 16; TEMP 97.8; O2SAT 98
[2025-06-08 09:00] VITALS: BP 122/70; PULSE 92; RESP 16; TEMP 97.8; O2SAT 98
[2025-06-08 20:12] VITALS: BP 131/56; PULSE 91; RESP 18; TEMP 97.5; O2SAT 97
[2025-06-09 08:12] VITALS: BP 128/79; PULSE 89; RESP 18; TEMP 97.8; O2SAT 97
[2025-06-09 12:47] VITALS: RESP 18; O2SAT 97
[2025-06-09 13:47] VITALS: RESP 17; O2SAT 97
[2025-06-09 17:29] VITALS: BP 139/89; RESP 18; O2SAT 97
[2025-06-09 20:22] VITALS: BP 139/89; PULSE 91; RESP 18; TEMP 97.5; O2SAT 97
[2025-06-09 21:22] VITALS: RESP 18; O2SAT 97
[2025-06-10 08:13] VITALS: BP 138/70; PULSE 94; RESP 17; TEMP 97.5; O2SAT 97
[2025-06-10 10:35] VITALS: RESP 18; O2SAT 97
[2025-06-10 11:35] VITALS: RESP 17; O2SAT 97
[2025-06-10 16:57] VITALS: BP 125/76
[2025-06-10 20:26] VITALS: BP 124/75; PULSE 90; RESP 17; TEMP 98.1; O2SAT 99
[2025-06-11 06:55] VITALS: BP 117/52; PULSE 95; RESP 18; TEMP 97.6; O2SAT 96
[2025-06-11 07:57] VITALS: RESP 18
[2025-06-11 08:17] VITALS: BP 138/97; PULSE 89; RESP 18; TEMP 98.1; O2SAT 98
[2025-06-11] MEDS: CEPHALEXIN MONOHYDRATE 250 MG CAPSULE PO SCH (09:52)
[2025-06-11] MEDS ORDERED: CLOZ25TA52 PO (11:54)
[2025-06-11] MEDS ORDERED: BUSP10TA23 PO (11:54)
[2025-06-11] MEDS ORDERED: DIVA-112 PO ×2 (11:55→11:56)
[2025-06-11] MEDS ORDERED: CLOZ100T61 PO (11:56)
[2025-06-11] MEDS ORDERED: HALO5TAB23 PO (11:58)
[2025-06-11] MEDS ORDERED: LEVO200 PO (12:13)
[2025-06-11] MEDS ORDERED: BACI28.410 TP (12:15)
[2025-06-11] MEDS ORDERED: LEVE-71 PO (12:16)
[2025-06-11] MEDS ORDERED: CARV-165 PO (12:16)
[2025-06-11] MEDS ORDERED: OMEG100033 PO (12:17)
[2025-06-11] MEDS ORDERED: METF-1211 PO (12:18)
[2025-06-11] MEDS ORDERED: AMLO-257 PO (12:18)
[2025-06-11] MEDS ORDERED: MULT-1303 PO (12:19)
[2025-06-11] MEDS ORDERED: CHOL25TA4 PO (12:19)
[2025-06-11] MEDS ORDERED: CEPH-556 PO (12:20)
[2025-06-11] MEDS ORDERED: PROP40TA7 PO (12:24)
[2025-06-11 20:10] VITALS: BP 116/70; PULSE 90; RESP 18; TEMP 98; O2SAT 100
[2025-06-12 09:20] LABS: APPEARANCE,URINE CLEAR (CLEAR); GLUCOSE, URINE (UA) NEGATIVE (NEGATIVE); LEUKOCYTE ESTERASE ,URINE NEGATIVE (NEGATIVE); NITRATE,URINE NEGATIVE (NEGATIVE); OCCULT BLOOD,URINE NEGATIVE (NEGATIVE); SPECIFIC GRAVITIY, URINE 1.012 (1.003-1.030)
== END 2025-06-11 21:15 | DRG 761 ==
LOC: EMS 16:26 → B2S 20:34 → CMPBEDREQ 05-30 20:16
PROVIDERS: ADMIT Psychiatry & Neurology Psychiatry; ATTEND Psychiatry & Neurology Psychiatry
PROC: GZ58ZZZ Individual Psychotherapy, Cognitive-Behavioral (ICD-10-PCS; 2025-05-29)
PROC: GZ56ZZZ Individual Psychotherapy, Supportive (ICD-10-PCS; 2025-05-29)
PROC: GZHZZZZ Group Psychotherapy (ICD-10-PCS; principal; 2025-05-30)
DX: F25.1 Schizoaffective disorder, depressive type (principal); R56.9 Unspecified convulsions; E03.9 Hypothyroidism, unspecified; E66.01 Morbid (severe) obesity due to excess calories; E11.9 Type 2 diabetes mellitus without complications; I10 Essential (primary) hypertension; F15.90 Other stimulant use, unspecified, uncomplicated; F41.9 Anxiety disorder, unspecified; R45.1 Restlessness and agitation; R10.9 Unspecified abdominal pain; R21 Rash and other nonspecific skin eruption; J45.909 Unspecified asthma, uncomplicated; F19.10 Other psychoactive substance abuse, uncomplicated; K59.00 Constipation, unspecified; Z68.41 Body mass index [BMI] 40.0-44.9, adult; Z20.822 Contact with and (suspected) exposure to COVID-19; Z79.899 Other long term (current) drug therapy
CPT/HCPCS: 76700; 80048; 80053; 80061; 80164; 80307; 81001; 81003; 83036; 83690; 84436; 84439; 84703; 85025; 87081; 99285; G0480; J3535